=== PATIENT | male | born 1955 | race Caucasian/White ===

== ENCOUNTER 2024-06-22 10:52 | Observation (INO) | payer BC, MEDICARE ==
[2024-06-22 11:15] LABS: Absolute Neutrophil Ct (ANC) 4.11 x10^3/uL (1.78-5.38); BASOPHIL % 0.4 % (0.2-1.2); Basophil (Absolute #) 0.03 x10^3/uL (0.01-0.08); Eosinophil % 1.9 % (0.8-7.0); Eosinophil (Absolute #) 0.13 x10^3/uL (0.04-0.54); Hemoglobin 16.8 g/dL (13.7-17.5); IMMATURE GRAN # 0.02 x10^3u/L (0.001-0.031); IMMATURE GRAN % 0.3 % (0.001-0.429); Lymphocyte (Absolute #) 2.14 x10^3/uL (1.32-3.57); Lymphocytes % 31.1 % (21.8-53.1); Mean Cell Volume 87.1 fL (79.0-92.2); Mean Corpuscular Hemoglobin 29.3 pg (25.7-32.2); Mean Corpuscular Hgb Concent. 33.6 g/dL (32.3-36.5); Mean Platelet Volume 11.1 fL (9.4-12.4); Monocyte (Absolute #) 0.46 x10^3/uL (0.30-0.82); Monocytes % 6.7 % (5.3-12.2); Neutrophil % 59.6 % (34.0-67.9); Platelet Count 197 x10^3/uL (163-337); Red Blood Count 5.74 x10^6/uL (4.63-6.08); Red Cell Distribution Width 12.8 % (11.6-14.4); White Blood Count 6.9 x10^3/uL (4.23-9.07)
[2024-06-22 11:25] LABS: ALBUMIN 4.9 g/dL (3.5-5.0); ANION GAP 17.7 MEQ/L (5-15); BILIRUBIN,TOTAL 0.8 mg/dL (0.2-1.3); Calcium 9.8 mg/dL (8.4-10.2); Creatinine 1 1.33 mg/dL (0.66-1.25); EST GLOMERULAR FILTRATION RATE 57.2 ML/MIN; Potassium 4.9 mmol/L (3.5-5.1); Total Protein 7.9 g/dL (6.3-8.2)
[2024-06-22] MEDS ORDERED: Sodium Chloride 0.9% 1000 ML 1,000 ML ONE ×2 (11:55→12:59)
[2024-06-22] MEDS: Sodium Chloride 0.9% 1000 ML 1,000 ML IV STA (11:55)
--- NOTE | 2024-06-22 12:00 | XRAY ---
Indication: Short of breath. Comparison: None Portable chest demonstrates normal heart, lungs, and bony thorax.
--- NOTE | 2024-06-22 12:00 | XRAY ---
Indication: Confusion per left-sided numbness. Multiple contiguous axial images obtained through the head without contrast. Comparison: None Normal appearing brain parenchyma, ventricles, and bony calvarium for patient's age. 1.6 cm left maxillary sinus polyp/retention cyst. Remaining visualized paranasal sinuses and mastoid air cells are clear. Impression: Normal CT head without contrast exam. Incidental left maxillary sinus polyp/retention cyst.
[2024-06-22] MEDS: Sodium Chloride 0.9% 1000 ML 1,000 ML IV SCH (13:00)
[2024-06-22 13:15] LABS: Appearance Clear (Clear); Bacteria None Seen /HPF (None Seen); Bilirubin Negative (Negative); Blood Negative (Negative); Epithelial Cells None Seen /HPF (None Seen); Glucose, Urine Negative (Negative); Hyaline Casts NONE SEEN /LPF (0-2); Ketones Negative (Negative); Leukocyte Esterase Negative (Negative); Nitrite Negative (Negative); Protein,Urine Dip Negative (Negative); RBC 0-2 /HPF (0-5); Urobilinogen 0.2 mg/dL (0.2); WBC 0-2 /HPF (0-5)
--- NOTE | 2024-06-22 15:13 | XRAY ---
Indication: Confusion. Occlusion. Normal CT head without contrast exam. Conventional contrast enhanced CTA neck performed using 100 cc Isovue 370 contrast. 2-D sagittal and coronal reformatted images obtained. Additional 3-D reformatted images obtained using separate workstation. Comparison: None Visualized aortic arch minimally arteriosclerotic with anatomic variant bovine arch. Widely patent right brachiocephalic, left common carotid, and left subclavian arteries. Examination right carotid circulation demonstrates normal CTA appearance to common carotid artery. Minimal eccentric calcifications carotid bulb and lesser degree origins of internal carotid and external carotid arteries. No critical stenosis, obstruction, or AV malformation. Examination left preservation emesis normal CTA appearance to common carotid and carotid bulb. Very minimal calcifications origins of internal carotid and external carotid arteries. No critical stenosis, obstruction, or AV malformation. Vertebral arteries are bilaterally patent with the right larger in caliber. Visualized soft tissues demonstrates markedly enlarged and heterogeneous left thyroid gland. No pathologic cervical/supraclavicular lymphadenopathy. Supra and infraglottic airway widely patent. Osseous structures intact with mild C5-C6 degenerative disc osteophyte complex. Patient edentulous. Lung apices clear. Impression: 1. Minimal arteriosclerotic calcifications, right carotid circulation greater than left. Dominant right vertebral artery. Remaining CTA neck with contrast exam is normal. 2. Incidental large heterogeneous left thyroid. Outpatient thyroid sonogram may yield further information. 3. Incidental C5-C6 generative disc disease
--- NOTE | 2024-06-22 15:15 | XRAY ---
Indication: Confusion. Occlusion. Normal CT head without contrast exam. Conventional contrast enhanced CTA head performed using 100 cc Isovue 370 contrast. 2-D sagittal and coronal reformatted images obtained. Additional 3-D reformatted images obtained using separate workstation. Comparison: None Distal internal carotid arteries are bilaterally symmetric with minimal arteriosclerotic calcifications in both parasellar segments. No critical stenosis, obstruction, or AV malformation. Normal carotid terminus with normal branching A1 and M1 segments bilaterally. More distal anterior cerebral and middle cerebral arteries are normal in CTA appearance. Posterior circulation demonstrates normal CTA appearance to distal left/right vertebral, basilar, left/right posterior cerebral, and left/right superior cerebellar arteries. Venous sinuses/drainage unremarkable. Brain parenchyma negative for abnormal enhancing intra-or extra-axial mass. Impression: Minimal arteriosclerotic calcifications both parasellar internal carotid arteries without critical stenosis/obstruction. Remaining CTA head with contrast exam is normal.
--- NOTE | 2024-06-22 15:52 | ERPHSYRPT ---
- History of Present Illness Time Seen by Provider: 06/22/24 11:10 Source: patient Exam Limitations: no limitations Patient Subjective Stated Complaint: C/O left sided weakness this am. Patient states he woke up around 0830 this am and was unable to use his left arm and leg properly; indicates left side is numb and tingling. Patient states he was okay when he went to bed last night. After speaking with patient for a minute, he indicates he has had some numbness and tingling for a few weeks but the inability to use his left limbs started this am. Triage Nursing Assessment: Patient brought back to ER in a W/C. He is alert and oriented. Weakness is noted to LUE and LLE with slight left sided facial droop present. Left fingers/hand drawn inward but he can move hand and fingers when commanded to do so. Patient unable to touch finger to nurse hand and then back to nose; misses his own nose each time. No SOB. Timing/Duration: today Severity: mild Associated Symptoms: denies symptoms Allergies/Adverse Reactions: Penicillins Allergy (Verified 06/22/24 10:59) Home Medications: No Reportable Medications [No Reported Medications] 06/22/24 [History] Hx Tetanus, Diphtheria Vaccination/Date Given: Yes Hx Influenza Vaccination/Date Given: No Hx Pneumococcal Vaccination/Date Given: No Immunizations Up to Date: Yes Travel Risk - International Travel Have you traveled outside of the country in past 3 weeks: No - Emerging Infectious Disease Are you exhibiting symptoms associated with any current EIDs: No - Review of Systems Eyes: No Symptoms Ears, Nose, & Throat: No Symptoms Respiratory: No Symptoms Cardiac: No Symptoms Abdominal/Gastrointestinal: No Symptoms Genitourinary Symptoms: No Symptoms Musculoskeletal: No Symptoms Neurological: Focal Weakness Psychological: No Symptoms Endocrine: No Symptoms Hematologic/Lymphatic: No Symptoms - Past Medical History Pertinent Past Medical History: Yes Neurological History: No Pertinent History ENT History: No Pertinent History Cardiac History: No Pertinent History Respiratory History: No Pertinent History Endocrine Medical History: No Pertinent History Musculoskeletal History: No Pertinent History GI Medical History: No Pertinent History History: No Pertinent History Psycho-Social History: No Pertinent History Male Reproductive Disorders: No Pertinent History, Prostate Problems Other Medical History: Patient indicates he doesn't go to the doctor often at all and has never been on any prescription medications for anything - Past Surgical History Past Surgical History: No - Social History Smoking Status: Never smoker Drug Use: none - Social Determinants of Health Will the patient participate in the screening: Declined to provide - Nursing Vital Signs Nursing Vital Signs: Initial Vital Signs Temperature 97.4 F 06/22/24 10:59 Pulse Rate 67 06/22/24 10:59 Respiratory Rate 17 06/22/24 10:59 Blood Pressure 171/113 06/22/24 10:59 O2 Sat by Pulse Oximetry 98 06/22/24 10:59 Pain Scale Pain Intensity 0 - Physical Exam General Appearance: no apparent distress Eye Exam: PERRL/EOMI Ears, Nose, Throat Exam: normal ENT inspection Respiratory Exam: diminished breath sounds Cardiovascular Exam: regular rate/rhythm Gastrointestinal/Abdomen Exam: soft Neurologic Exam: alert, oriented x 3, cooperative, normal mood/affect ( he was also updated with the chest x-ray patient has some left upper extremity and left lower extremity weakness on exam ) SpO2: 98 Ordered Tests: Active Orders 24 hr Category Date Time Status NPO (ED) STAT Care 06/22/24 11:09 Active Oxygen-ED Only Nasal Cannula 2 lpm Care 06/22/24 11:09 Active Tele-Health Consult ROUTINE Cons 06/22/24 15:45 Active CHEST 1 VIEW (PORTABLE) Stat Exams 06/22/24 11:[address] ANGIOGRAPHY NECK [CT] Stat Exams 06/22/24 13:12 Completed CTA HEAD W AND/OR WO CONTRAST [CT] Stat Exams 06/22/24 13:11 Completed HEAD WITHOUT CONTRAST [CT] Stat Exams 06/22/24 10:55 Completed CBC W DIFF Stat Lab 06/22/24 11:08 Completed CMP Stat Lab 06/22/24 11:08 Completed POCT GLUCOSE Stat Lab 06/22/24 10:58 Completed UA W/RFX UR CULTURE Stat Lab 06/22/24 11:59 Completed Medication Summary Generic Name Dose Route Start Last Admin Trade Name Freq PRN Reason Stop Dose Admin Aspirin 325 mg 06/22/24 22:00 Aspirin 325 Mg Tablet.Ec PO 07/22/24 21:59 HS PORTIA Sodium Chloride 1,000 mls @ 50 mls/hr 06/22/24 11:15 06/22/24 13:00 Sodium Chloride 0.9% 1000 Ml IV 07/22/24 11:14 50 mls/hr .Q20H PORTIA Administration Discontinued Medications Generic Name Dose Route Start Last Admin Trade Name Freq PRN Reason Stop Dose Admin Atorvastatin Calcium 40 mg 06/22/24 15:51 Atorvastatin Calcium 40 Mg Tablet PO 06/22/24 15:52 STAT STA Sodium Chloride 1,000 mls @ 999 mls/hr 06/22/24 11:30 06/22/24 12:58 Sodium Chloride 0.9% 1000 Ml IV 06/22/24 12:30 Infused .Q1H1M STA Infusion Lab/Rad Data: Laboratory Result Diagrams 06/22/24 11:08 06/22/24 11:08 Laboratory Results 06/22/24 06/22/24 06/22/24 Range/Units 11:59 11:08 11:08 WBC 6.9 (4.23-9.07) x10^3/uL RBC 5.74 (4.63-6.08) x10^6/uL Hgb 16.8 (13.7-17.5) g/dL Hct 50.0 (40.1-51.0) % MCV 87.1 (79.0-92.2) fL MCH 29.3 (25.7-32.2) pg MCHC 33.6 (32.3-36.5) g/dL RDW 12.8 (11.6-14.4) % Plt Count 197 (163-337) x10^3/uL MPV 11.1 (9.4-12.4) fL Gran % 59.6 (34.0-67.9) % Immature Gran % (Auto) 0.3 (0.001-0.429) % Nucleat RBC Rel Count 0.0 (0.00-0.2) % Eos # (Auto) 0.13 (0.04-0.54) x10^3/uL Immature Gran # (Auto) 0.02 (0.001-0.031) x10^3u/L Absolute Lymphs (auto) 2.14 (1.32-3.57) x10^3/uL Absolute Monos (auto) 0.46 (0.30-0.82) x10^3/uL Absolute Nucleated RBC 0.00 (0.00-0.012) x10^3u/L Lymphocytes % 31.1 (21.8-53.1) % Monocytes % 6.7 (5.3-12.2) % Eosinophils % 1.9 (0.8-7.0) % Basophils % 0.4 (0.2-1.2) % Absolute Granulocytes 4.11 (1.78-5.38) x10^3/uL Basophils # 0.03 (0.01-0.08) x10^3/uL Sodium 138 (135-145) mmol/L Potassium 4.9 (3.5-5.1) mmol/L Chloride 103 (98-107) mmol/L Carbon Dioxide 22 (22-30) mmol/L Anion Gap 17.7 H (5-15) MEQ/L BUN 17 (9-20) mg/dL Creatinine 1.33 H (0.66-1.25) mg/dL Estimated GFR 57.2 ML/MIN Glucose 141 H (74-106) mg/dL POC Glucometer (74 to 106) mg/dL Calcium 9.8 (8.4-10.2) mg/dL Total Bilirubin 0.80 (0.2-1.3) mg/dL AST 41 (17-59) U/L ALT 47 (0-50) U/L Alkaline Phosphatase 48 (38-126) U/L Serum Total Protein 7.9 (6.3-8.2) g/dL Albumin 4.9 (3.5-5.0) g/dL Urine Color Yellow (Yellow) Urine Appearance Clear (Clear) Urine pH 6.0 (4.6-8.0) Ur Specific [place] 1.010 (1.005-1.030) Urine Protein Negative (Negative) Urine Glucose (UA) Negative (Negative) mg/dL Urine Ketones Negative (Negative) Urine Blood Negative (Negative) Urine Nitrite Negative (Negative) Urine Bilirubin Negative (Negative) Urine Urobilinogen 0.2 (0.2) mg/dL Ur Leukocyte Esterase Negative (Negative) U Hyaline Cast (Auto) NONE SEEN (0-2) /LPF Urine Microscopic RBC 0-2 (0-5) /HPF Urine Microscopic WBC 0-2 (0-5) /HPF Ur Epithelial Cells None Seen (None Seen) /HPF Urine Bacteria None Seen (None Seen) /HPF Urine Culture Reflexed NO (NO) 06/22/24 Range/Units 10:58 WBC (4.23-9.07) x10^3/uL RBC (4.63-6.08) x10^6/uL Hgb (13.7-17.5) g/dL Hct (40.1-51.0) % MCV (79.0-92.2) fL MCH (25.7-32.2) pg MCHC (32.3-36.5) g/dL RDW (11.6-14.4) % Plt Count (163-337) x10^3/uL MPV (9.4-12.4) fL Gran % (34.0-67.9) % Immature Gran % (Auto) (0.001-0.429) % Nucleat RBC Rel Count (0.00-0.2) % Eos # (Auto) (0.04-0.54) x10^3/uL Immature Gran # (Auto) (0.001-0.031) x10^3u/L Absolute Lymphs (auto) (1.32-3.57) x10^3/uL Absolute Monos (auto) (0.30-0.82) x10^3/uL Absolute Nucleated RBC (0.00-0.012) x10^3u/L Lymphocytes % (21.8-53.1) % Monocytes % (5.3-12.2) % Eosinophils % (0.8-7.0) % Basophils % (0.2-1.2) % Absolute Granulocytes (1.78-5.38) x10^3/uL Basophils # (0.01-0.08) x10^3/uL Sodium (135-145) mmol/L Potassium (3.5-5.1) mmol/L Chloride (98-107) mmol/L Carbon Dioxide (22-30) mmol/L Anion Gap (5-15) MEQ/L BUN (9-20) mg/dL Creatinine (0.66-1.25) mg/dL Estimated GFR ML/MIN Glucose (74-106) mg/dL POC Glucometer 131 H (74 to 106) mg/dL Calcium (8.4-10.2) mg/dL Total Bilirubin (0.2-1.3) mg/dL AST (17-59) U/L ALT (0-50) U/L Alkaline Phosphatase (38-126) U/L Serum Total Protein (6.3-8.2) g/dL Albumin (3.5-5.0) g/dL Urine Color (Yellow) Urine Appearance (Clear) Urine pH (4.6-8.0) Ur Specific [place] (1.005-1.030) Urine Protein (Negative) Urine Glucose (UA) (Negative) mg/dL Urine Ketones (Negative) Urine Blood (Negative) Urine Nitrite (Negative) Urine Bilirubin (Negative) Urine Urobilinogen (0.2) mg/dL Ur Leukocyte Esterase (Negative) U Hyaline Cast (Auto) (0-2) /LPF Urine Microscopic RBC (0-5) /HPF Urine Microscopic WBC (0-5) /HPF Ur Epithelial Cells (None Seen) /HPF Urine Bacteria (None Seen) /HPF Urine Culture Reflexed (NO) - Progress Progress Note: patient was seen and evaluated for stroke like symptoms labs were ordered and - ct head revealed no acute findings and patient was informed of the need for cta head and neck and the need for admission - I discussed the case with the hospitalist and the teleneurologist who agreed with the need for admission - patient took aspirin prior to coming in and lipitor 40 mg po will be ordered 06/22/24 16:06 Medical Desision Making - Discussion of managment Care discussed with:: hospitalist Reviewed:: Need for additional workup Agreed on:: decision to admit, place in obs - Departure Departure Disposition: Observation Clinical Impression: TIA (transient ischemic attack), Hypertension Condition: Good Critical Care Time: No Referrals: DOCTOR,NO FAMILY [Primary Care Provider] - Follow up/PCP as directed
[2024-06-22] MEDS ORDERED: LIPITOR 40MG ONE (16:17)
[2024-06-22] MEDS: LIPITOR 40MG PO STA (16:19)
--- NOTE | 2024-06-22 17:55 | PCM.HP ---
History of Present Illness - Chief Complaint Chief Complaint: left sided weakness Date: 06/22/24 History of Present Illness: is a 69 year old male with PMHX of prostate problems and obesity. He came in the ER today for C/O left sided weakness this am. Patient states he woke up around 0830 this am and was unable to use his left arm and leg properly; indicates left side is numb and tingling. Patient states he was okay when he went to bed last night. After speaking with patient for a minute, he indicates he has had some numbness and tingling for a few weeks but the inability to use his left limbs started this am. Neuro exam is non-concerning. Radiology images reviewed and show no acute concerns. Neurology consulted and would like MRI tomorrow. Pt denies any further concerns except some left arm/ hand weakness at this time. - Review of Systems Constitutional: No Fever, No Chills Eyes: No Symptoms Ears, Nose, & Throat: No Symptoms Respiratory: No Cough, No Short Of Breath Cardiac: No Chest Pain, No Edema, No Syncope Abdominal/Gastrointestinal: No Abdominal Pain, No Nausea, No Vomiting, No Diarrhea Genitourinary Symptoms: No Dysuria Musculoskeletal: No Back Pain, No Neck Pain Skin: No Rash Neurological: Sensory Changes (left sided weakness), No Dizziness, No Focal Weakness Psychological: No Symptoms Endocrine: No Symptoms Hematologic/Lymphatic: No Symptoms Immunological/Allergic: No Symptoms Medications & Allergies Home Medications: Home Medication List No Reportable Medications [No Reported Medications] 06/22/24 [History Confirmed 06/22/24] Allergies/Adverse Reactions: Allergies Allergy/AdvReac Type Severity Reaction Status Date / Time Penicillins Allergy Verified 06/22/24 17:54 - Past Medical History Past Medical History: Yes Neurological History: No Pertinent History ENT History: No Pertinent History Cardiac History: No Pertinent History Respiratory History: No Pertinent History Endocrine Medical History: No Pertinent History Musculoskelatal History: No Pertinent History GI Medical History: No Pertinent History History: No Pertinent History Pyscho-Social History: No Pertinent History Male Reproductive Disorders: No Pertinent History, Prostate Problems Comment: Patient indicates he doesn't go to the doctor often at all and has never been on any prescription medications for anything - Past Surgical History Past Surgical History: No Cardiac History: No Pertinent History Respiratory Surgery: No Pertinent History GI Surgical History: No Pertinent History Genitourinary Surgical Hx: No Pertinent History Musculskeletal Surgical Hx: No Pertinent History Male Surgical History: No Pertinent History Significant Family History: no pertinent family hx - Social History Smoking Status: Never smoker Alcohol: None Drug Use: none - Social Determinants of Health Will the patient participate in the screening: Declined to provide Do you worry about a steady place to live?: Choose not to answer Do you have any problems with any of the following?: No known problems In the past 12 months,have you had to go without utilities?: Choose not to answer Have you or anyone in your house had to go without enough: Choose not to answer Transportation Issues: Choose not to answer Has anyone in your support network made you feel unsafe?: Choose not to answer Does the patient want assistance with any of the above?: No - Physical Exam Vital Signs: Vital Signs - 24 hr Temp Pulse Resp BP BP Pulse Ox 06/22/24 17:01 56 L 14 144/76 97 06/22/24 16:31 62 17 150/87 06/22/24 16:16 63 13 136/70 96 06/22/24 16:12 98 06/22/24 16:01 57 L 18 152/72 97 06/22/24 15:47 61 14 164/92 98 06/22/24 15:31 74 16 164/92 98 06/22/24 15:18 90 18 97 06/22/24 15:01 79 19 161/75 100 06/22/24 14:46 71 20 127/46 94 L 06/22/24 14:34 56 L 18 132/70 96 06/22/24 13:31 61 18 147/74 95 06/22/24 13:16 62 20 155/72 99 06/22/24 13:00 68 151/70 98 06/22/24 12:46 55 L 135/69 99 06/22/24 12:30 57 L 142/85 99 06/22/24 12:15 53 L 149/80 98 06/22/24 12:00 61 14 138/72 99 06/22/24 11:57 67 13 162/84 99 06/22/24 11:56 69 20 97 06/22/24 11:55 75 21 06/22/24 11:40 59 L 15 96 06/22/24 11:30 62 6 L 97 06/22/24 11:28 58 L 17 98 06/22/24 11:01 70 18 182/87 99 06/22/24 10:59 97.4 F 67 17 171/113 98 General Appearance: no apparent distress, alert Neurologic Exam: alert, oriented x 3, cooperative, counter molder II-XII nml as tested, normal mood/affect, nml cerebellar function, nml station & gait, sensation nml, No motor deficits Eye Exam: PERRL/EOMI, eyes nml inspection Ears, Nose, Throat Exam: normal ENT inspection, TMs normal, pharynx normal, moist mucous membranes Neck Exam: normal inspection, non-tender, supple, full range of motion Respiratory Exam: normal breath sounds, lungs clear, No respiratory distress Cardiovascular Exam: regular rate/rhythm, normal heart sounds, normal peripheral pulses Gastrointestinal/Abdomen Exam: soft, normal bowel sounds, No tenderness, No mass Back Exam: normal inspection, normal range of motion, No CVA tenderness, No vertebral tenderness Extremity Exam: normal inspection, normal range of motion, pelvis stable Skin Exam: normal color, warm, dry, No rash Lymphatic Exam: No adenopathy Results - Labs Lab/Micro Results: Lab Results-Last 24 Hours 06/22/24 06/22/24 06/22/24 Range/Units 10:58 11:08 11:08 WBC 6.9 (4.23-9.07) x10^3/uL RBC 5.74 (4.63-6.08) x10^6/uL Hgb 16.8 (13.7-17.5) g/dL Hct 50.0 (40.1-51.0) % MCV 87.1 (79.0-92.2) fL MCH 29.3 (25.7-32.2) pg MCHC 33.6 (32.3-36.5) g/dL RDW 12.8 (11.6-14.4) % Plt Count 197 (163-337) x10^3/uL MPV 11.1 (9.4-12.4) fL Gran % 59.6 (34.0-67.9) % Immature Gran % (Auto) 0.3 (0.001-0.429) % Nucleat RBC Rel Count 0.0 (0.00-0.2) % Eos # (Auto) 0.13 (0.04-0.54) x10^3/uL Immature Gran # (Auto) 0.02 (0.001-0.031) x10^3u/L Absolute Lymphs (auto) 2.14 (1.32-3.57) x10^3/uL Absolute Monos (auto) 0.46 (0.30-0.82) x10^3/uL Absolute Nucleated RBC 0.00 (0.00-0.012) x10^3u/L Lymphocytes % 31.1 (21.8-53.1) % Monocytes % 6.7 (5.3-12.2) % Eosinophils % 1.9 (0.8-7.0) % Basophils % 0.4 (0.2-1.2) % Absolute Granulocytes 4.11 (1.78-5.38) x10^3/uL Basophils # 0.03 (0.01-0.08) x10^3/uL Sodium 138 (135-145) mmol/L Potassium 4.9 (3.5-5.1) mmol/L Chloride 103 (98-107) mmol/L Carbon Dioxide 22 (22-30) mmol/L Anion Gap 17.7 H (5-15) MEQ/L BUN 17 (9-20) mg/dL Creatinine 1.33 H (0.66-1.25) mg/dL Estimated GFR 57.2 ML/MIN Glucose 141 H (74-106) mg/dL POC Glucometer 131 H (74 to 106) mg/dL Calcium 9.8 (8.4-10.2) mg/dL Total Bilirubin 0.80 (0.2-1.3) mg/dL AST 41 (17-59) U/L ALT 47 (0-50) U/L Alkaline Phosphatase 48 (38-126) U/L Serum Total Protein 7.9 (6.3-8.2) g/dL Albumin 4.9 (3.5-5.0) g/dL Urine Color (Yellow) Urine Appearance (Clear) Urine pH (4.6-8.0) Ur Specific [place] (1.005-1.030) Urine Protein (Negative) Urine Glucose (UA) (Negative) mg/dL Urine Ketones (Negative) Urine Blood (Negative) Urine Nitrite (Negative) Urine Bilirubin (Negative) Urine Urobilinogen (0.2) mg/dL Ur Leukocyte Esterase (Negative) U Hyaline Cast (Auto) (0-2) /LPF Urine Microscopic RBC (0-5) /HPF Urine Microscopic WBC (0-5) /HPF Ur Epithelial Cells (None Seen) /HPF Urine Bacteria (None Seen) /HPF Urine Culture Reflexed (NO) 06/22/24 Range/Units 11:59 WBC (4.23-9.07) x10^3/uL RBC (4.63-6.08) x10^6/uL Hgb (13.7-17.5) g/dL Hct (40.1-51.0) % MCV (79.0-92.2) fL MCH (25.7-32.2) pg MCHC (32.3-36.5) g/dL RDW (11.6-14.4) % Plt Count (163-337) x10^3/uL MPV (9.4-12.4) fL Gran % (34.0-67.9) % Immature Gran % (Auto) (0.001-0.429) % Nucleat RBC Rel Count (0.00-0.2) % Eos # (Auto) (0.04-0.54) x10^3/uL Immature Gran # (Auto) (0.001-0.031) x10^3u/L Absolute Lymphs (auto) (1.32-3.57) x10^3/uL Absolute Monos (auto) (0.30-0.82) x10^3/uL Absolute Nucleated RBC (0.00-0.012) x10^3u/L Lymphocytes % (21.8-53.1) % Monocytes % (5.3-12.2) % Eosinophils % (0.8-7.0) % Basophils % (0.2-1.2) % Absolute Granulocytes (1.78-5.38) x10^3/uL Basophils # (0.01-0.08) x10^3/uL Sodium (135-145) mmol/L Potassium (3.5-5.1) mmol/L Chloride (98-107) mmol/L Carbon Dioxide (22-30) mmol/L Anion Gap (5-15) MEQ/L BUN (9-20) mg/dL Creatinine (0.66-1.25) mg/dL Estimated GFR ML/MIN Glucose (74-106) mg/dL POC Glucometer (74 to 106) mg/dL Calcium (8.4-10.2) mg/dL Total Bilirubin (0.2-1.3) mg/dL AST (17-59) U/L ALT (0-50) U/L Alkaline Phosphatase (38-126) U/L Serum Total Protein (6.3-8.2) g/dL Albumin (3.5-5.0) g/dL Urine Color Yellow (Yellow) Urine Appearance Clear (Clear) Urine pH 6.0 (4.6-8.0) Ur Specific [place] 1.010 (1.005-1.030) Urine Protein Negative (Negative) Urine Glucose (UA) Negative (Negative) mg/dL Urine Ketones Negative (Negative) Urine Blood Negative (Negative) Urine Nitrite Negative (Negative) Urine Bilirubin Negative (Negative) Urine Urobilinogen 0.2 (0.2) mg/dL Ur Leukocyte Esterase Negative (Negative) U Hyaline Cast (Auto) NONE SEEN (0-2) /LPF Urine Microscopic RBC 0-2 (0-5) /HPF Urine Microscopic WBC 0-2 (0-5) /HPF Ur Epithelial Cells None Seen (None Seen) /HPF Urine Bacteria None Seen (None Seen) /HPF Urine Culture Reflexed NO (NO) Accuchecks Date 06/22/24 Time 10:58 - Radiology Impressions Radiology Exams & Impressions: Radiology Procedures Category Date Time Status CHEST 1 VIEW (PORTABLE) Stat Exams 06/22/24 11:[address] ANGIOGRAPHY NECK [CT] Stat Exams 06/22/24 13:12 Completed CTA HEAD W AND/OR WO CONTRAST [CT] Stat Exams 06/22/24 13:11 Completed HEAD WITHOUT CONTRAST [CT] Stat Exams 06/22/24 10:55 Completed Assessment/Plan (1) TIA (transient ischemic attack) Current Visit: Yes Status: Acute Assessment & Plan: - All radiology results reviewed. - CBC, CMP reviewed - UA reviewed - UDS ordered - Tele - neuro checks Q4 hours - PT/OT - no need for ST at this time. - neurology consult - MRI in AM - ASA 81mg daily - ASA 325mg gave in ER Code(s): G45.9 - TRANSIENT CEREBRAL ISCHEMIC ATTACK, UNSPECIFIED (2) Obesity (BMI 30-39.9) Current Visit: Yes Status: Chronic Assessment & Plan: - advised diet and exercise control Code(s): E66.9 - OBESITY, UNSPECIFIED (3) Thyroid enlargement Current Visit: Yes Status: Acute Assessment & Plan: - as seen on CT - TSH in AM - Consider US - abdon need OP f/u at D/C. Code(s): E04.9 - NONTOXIC GOITER, UNSPECIFIED (4) CKD (chronic kidney disease) Current Visit: Yes Status: Chronic Assessment & Plan: - Creat 1.33- appears to be at baseline per old labs reviewed. - CMP reviewed Code(s): N18.9 - CHRONIC KIDNEY DISEASE, UNSPECIFIED (5) Dehydration Current Visit: Yes Status: Acute Assessment & Plan: - Anion Gap 17.7 - Encouraged oral hydration. - NS @ 50 ml/hr VTE: SCD Next of KIN: Spouse D/C plan: tomorrow ? Code status: Full Code(s): E86.0 - DEHYDRATION Telemedicine Encounter - Telemedicine Encounter Telemedicine Encounter: "The entirety of this encounter was performed via Telemedicine" This visit was performed using real-time audio and video connection between my location and thepatients locationwith the assistance of a surrogateat the patients location. Written or verbal consent was obtained from the patient/ guardian to perform this visit [email or web address] technology. Any patient questions regarding the telemedicine interaction were answered.
[2024-06-22] MEDS ORDERED: TYLENOL 325 MG PO PRN (17:57)
[2024-06-22] MEDS ORDERED: Ecotrin 325 MG PO SCH (22:00)
[2024-06-23 05:09] LABS: Hematocrit 45.4 % (40.1-51.0); Hemoglobin 15.2 g/dL (13.7-17.5); Mean Corpuscular Hemoglobin 28.8 pg (25.7-32.2); Mean Corpuscular Hgb Concent. 33.5 g/dL (32.3-36.5); Mean Platelet Volume 11.1 fL (9.4-12.4); Platelet Count 194 x10^3/uL (163-337); Red Blood Count 5.28 x10^6/uL (4.63-6.08); Red Cell Distribution Width 13.1 % (11.6-14.4)
[2024-06-23 05:52] LABS: ALBUMIN 4.2 g/dL (3.5-5.0); ANION GAP 14.6 MEQ/L (5-15); BILIRUBIN,TOTAL 0.4 mg/dL (0.2-1.3); Calcium 9.1 mg/dL (8.4-10.2); Creatinine 1 1.15 mg/dL (0.66-1.25); Potassium 4.1 mmol/L (3.5-5.1); TSH, 3RD Generation 2.837 mIU/L (0.470-4.680); Total Protein 6.9 g/dL (6.3-8.2)
[2024-06-23] MEDS ORDERED: TYLENOL 325 MG PO PRN (07:57)
[2024-06-23 08:51] VITALS: O2SAT 97
[2024-06-23 08:58] LABS: Amphetamine,Urine NEGATIVE (NEGATIVE); Barbiturate,Urine NEGATIVE (NEGATIVE); Benzodiazepine,Urine NEGATIVE (NEGATIVE); Cocaine,Urine NEGATIVE (NEGATIVE); Methadone,Urine NEGATIVE (NEGATIVE); Opiate,Urine NEGATIVE (NEGATIVE); PCP,Urine NEGATIVE (NEGATIVE); THC,Urine NEGATIVE (NEGATIVE)
--- NOTE | 2024-06-23 10:20 | PCM.DS ---
Discharge Summary Date of Admission: 06/22/24 17:48 Date of Discharge: 06/23/24 Admitting Physician: KANCHAN RUBIO MD Consults: Consults on Case 06/22/24 15:45 Tele-Health Consult ROUTINE Primary Care Provider: NO FAMILY DOCTOR Allergies Allergies Penicillins Allergy (Verified 06/22/24 17:54) Hospital Summary - Hospital Course Hospital Course: 06/22/24 is a 69 year old male with PMHX of prostate problems and obesity. He came in the ER today for C/O left sided weakness this am. Patient states he woke up around 0830 this am and was unable to use his left arm and leg properly; in dicates left side is numb and tingling. Patient states he was okay when he went to bed last night. After speaking with patient for a minute, he indicates he has had some numbness and tingling for a few weeks but the inability to use his left limbs started this am. Neuro exam is non-concerning. Radiology images reviewed and show no acute concerns. Neurology consulted and would like MRI tomorrow. Pt denies any further concerns except some left arm/ hand weakness at this time. 06/23/24 Pt resting in bed. He states he no longer has any left sided weakness and he only has some tingling in his left forearm today. Neuro exam non-concerning. MRI pending. If OK can d/c home today. Will need a f/u appointment with a PCP as he does not have one. He denies CP, SOB, abd. pain, N/V/D. He has been up walking without any concerns. He is eating and drinking fine. MRI finding discussed with neurology. Pt to d/c with atorvastatin 80mg daily and ASA daily. Will need OP PT and case management to set up for pt tomorrow. Pt will need to f/u with neurology and appointment to made for pt tomorrow. - Vitals & Intake/Output Vital Signs: Vital Signs Temperature 97.4 F 06/23/24 08:51 Pulse Rate 63 06/23/24 08:51 Respiratory Rate 18 06/23/24 08:51 Blood Pressure 132/75 06/23/24 08:51 O2 Sat by Pulse Oximetry 97 06/23/24 08:51 Intake & Output: Intake & Output 06/20/24 06/21/24 06/22/2406/23/24 11:59 11:59 11:59 11:59 Intake Total 240 Balance 240 Weight 117.934 kg 106.5 kg - Lab Result Diagrams: 06/23/24 05:00 06/23/24 05:00 Lab Results-Last 24 Hrs: Lab Results-Last 24 Hours 06/22/24 06/22/24 06/22/24 Range/Units 10:58 11:08 11:08 WBC 6.9 (4.23-9.07) x10^3/uL RBC 5.74 (4.63-6.08) x10^6/uL Hgb 16.8 (13.7-17.5) g/dL Hct 50.0 (40.1-51.0) % MCV 87.1 (79.0-92.2) fL MCH 29.3 (25.7-32.2) pg MCHC 33.6 (32.3-36.5) g/dL RDW 12.8 (11.6-14.4) % Plt Count 197 (163-337) x10^3/uL MPV 11.1 (9.4-12.4) fL Gran % 59.6 (34.0-67.9) % Immature Gran % (Auto) 0.3 (0.001-0.429) % Nucleat RBC Rel Count 0.0 (0.00-0.2) % Eos # (Auto) 0.13 (0.04-0.54) x10^3/uL Immature Gran # (Auto) 0.02 (0.001-0.031) x10^3u/L Absolute Lymphs (auto) 2.14 (1.32-3.57) x10^3/uL Absolute Monos (auto) 0.46 (0.30-0.82) x10^3/uL Absolute Nucleated RBC 0.00 (0.00-0.012) x10^3u/L Lymphocytes % 31.1 (21.8-53.1) % Monocytes % 6.7 (5.3-12.2) % Eosinophils % 1.9 (0.8-7.0) % Basophils % 0.4 (0.2-1.2) % Absolute Granulocytes 4.11 (1.78-5.38) x10^3/uL Basophils # 0.03 (0.01-0.08) x10^3/uL Sodium 138 (135-145) mmol/L Potassium 4.9 (3.5-5.1) mmol/L Chloride 103 (98-107) mmol/L Carbon Dioxide 22 (22-30) mmol/L Anion Gap 17.7 H (5-15) MEQ/L BUN 17 (9-20) mg/dL Creatinine 1.33 H (0.66-1.25) mg/dL Estimated GFR 57.2 ML/MIN Glucose 141 H (74-106) mg/dL POC Glucometer 131 H (74 to 106) mg/dL Hemoglobin A1c (4.5-6.0) % Calcium 9.8 (8.4-10.2) mg/dL Total Bilirubin 0.80 (0.2-1.3) mg/dL AST 41 (17-59) U/L ALT 47 (0-50) U/L Alkaline Phosphatase 48 (38-126) U/L Serum Total Protein 7.9 (6.3-8.2) g/dL Albumin 4.9 (3.5-5.0) g/dL TSH 3rd Generation (0.470-4.680) mIU/L Urine Color (Yellow) Urine Appearance (Clear) Urine pH (4.6-8.0) Ur Specific Vega (1.005-1.030) Urine Protein (Negative) Urine Glucose (UA) (Negative) mg/dL Urine Ketones (Negative) Urine Blood (Negative) Urine Nitrite (Negative) Urine Bilirubin (Negative) Urine Urobilinogen (0.2) mg/dL Ur Leukocyte Esterase (Negative) U Hyaline Cast (Auto) (0-2) /LPF Urine Microscopic RBC (0-5) /HPF Urine Microscopic WBC (0-5) /HPF Ur Epithelial Cells (None Seen) /HPF Urine Bacteria (None Seen) /HPF Urine Culture Reflexed (NO) Urine Opiates Level (NEGATIVE) Ur Methadone (NEGATIVE) Urine Barbiturates (NEGATIVE) Ur Phencyclidine (PCP) (NEGATIVE) Urine Amphetamine (NEGATIVE) U Benzodiazepine Level (NEGATIVE) Urine Cocaine (NEGATIVE) Urine Marijuana (THC) (NEGATIVE) 06/22/24 06/23/24 06/23/24 Range/Units 11:59 05:00 05:00 WBC 7.0 (4.23-9.07) x10^3/uL RBC 5.28 (4.63-6.08) x10^6/uL Hgb 15.2 (13.7-17.5) g/dL Hct 45.4 (40.1-51.0) % MCV 86.0 (79.0-92.2) fL MCH 28.8 (25.7-32.2) pg MCHC 33.5 (32.3-36.5) g/dL RDW 13.1 (11.6-14.4) % Plt Count 194 (163-337) x10^3/uL MPV 11.1 (9.4-12.4) fL Gran % (34.0-67.9) % Immature Gran % (Auto) (0.001-0.429) % Nucleat RBC Rel Count (0.00-0.2) % Eos # (Auto) (0.04-0.54) x10^3/uL Immature Gran # (Auto) (0.001-0.031) x10^3u/L Absolute Lymphs (auto) (1.32-3.57) x10^3/uL Absolute Monos (auto) (0.30-0.82) x10^3/uL Absolute Nucleated RBC (0.00-0.012) x10^3u/L Lymphocytes % (21.8-53.1) % Monocytes % (5.3-12.2) % Eosinophils % (0.8-7.0) % Basophils % (0.2-1.2) % Absolute Granulocytes (1.78-5.38) x10^3/uL Basophils # (0.01-0.08) x10^3/uL Sodium 139 (135-145) mmol/L Potassium 4.1 (3.5-5.1) mmol/L Chloride 106 (98-107) mmol/L Carbon Dioxide 23 (22-30) mmol/L Anion Gap 14.6 (5-15) MEQ/L BUN 16 (9-20) mg/dL Creatinine 1.15 (0.66-1.25) mg/dL Estimated GFR 68.0 ML/MIN Glucose 137 H (74-106) mg/dL POC Glucometer (74 to 106) mg/dL Hemoglobin A1c (4.5-6.0) % Calcium 9.1 (8.4-10.2) mg/dL Total Bilirubin 0.40 (0.2-1.3) mg/dL AST 31 (17-59) U/L ALT 41 (0-50) U/L Alkaline Phosphatase 52 (38-126) U/L Serum Total Protein 6.9 (6.3-8.2) g/dL Albumin 4.2 (3.5-5.0) g/dL TSH 3rd Generation 2.837 (0.470-4.680) mIU/L Urine Color Yellow (Yellow) Urine Appearance Clear (Clear) Urine pH 6.0 (4.6-8.0) Ur Specific Vega 1.010 (1.005-1.030) Urine Protein Negative (Negative) Urine Glucose (UA) Negative (Negative) mg/dL Urine Ketones Negative (Negative) Urine Blood Negative (Negative) Urine Nitrite Negative (Negative) Urine Bilirubin Negative (Negative) Urine Urobilinogen 0.2 (0.2) mg/dL Ur Leukocyte Esterase Negative (Negative) U Hyaline Cast (Auto) NONE SEEN (0-2) /LPF Urine Microscopic RBC 0-2 (0-5) /HPF Urine Microscopic WBC 0-2 (0-5) /HPF Ur Epithelial Cells None Seen (None Seen) /HPF Urine Bacteria None Seen (None Seen) /HPF Urine Culture Reflexed NO (NO) Urine Opiates Level (NEGATIVE) Ur Methadone (NEGATIVE) Urine Barbiturates (NEGATIVE) Ur Phencyclidine (PCP) (NEGATIVE) Urine Amphetamine (NEGATIVE) U Benzodiazepine Level (NEGATIVE) Urine Cocaine (NEGATIVE) Urine Marijuana (THC) (NEGATIVE) 06/23/24 06/23/24 Range/Units 05:20 08:39 WBC (4.23-9.07) x10^3/uL RBC (4.63-6.08) x10^6/uL Hgb (13.7-17.5) g/dL Hct (40.1-51.0) % MCV (79.0-92.2) fL MCH (25.7-32.2) pg MCHC (32.3-36.5) g/dL RDW (11.6-14.4) % Plt Count (163-337) x10^3/uL MPV (9.4-12.4) fL Gran % (34.0-67.9) % Immature Gran % (Auto) (0.001-0.429) % Nucleat RBC Rel Count (0.00-0.2) % Eos # (Auto) (0.04-0.54) x10^3/uL Immature Gran # (Auto) (0.001-0.031) x10^3u/L Absolute Lymphs (auto) (1.32-3.57) x10^3/uL Absolute Monos (auto) (0.30-0.82) x10^3/uL Absolute Nucleated RBC (0.00-0.012) x10^3u/L Lymphocytes % (21.8-53.1) % Monocytes % (5.3-12.2) % Eosinophils % (0.8-7.0) % Basophils % (0.2-1.2) % Absolute Granulocytes (1.78-5.38) x10^3/uL Basophils # (0.01-0.08) x10^3/uL Sodium (135-145) mmol/L Potassium (3.5-5.1) mmol/L Chloride (98-107) mmol/L Carbon Dioxide (22-30) mmol/L Anion Gap (5-15) MEQ/L BUN (9-20) mg/dL Creatinine (0.66-1.25) mg/dL Estimated GFR ML/MIN Glucose (74-106) mg/dL POC Glucometer (74 to 106) mg/dL Hemoglobin A1c 6.51 H (4.5-6.0) % Calcium (8.4-10.2) mg/dL Total Bilirubin (0.2-1.3) mg/dL AST (17-59) U/L ALT (0-50) U/L Alkaline Phosphatase (38-126) U/L Serum Total Protein (6.3-8.2) g/dL Albumin (3.5-5.0) g/dL TSH 3rd Generation (0.470-4.680) mIU/L Urine Color (Yellow) Urine Appearance (Clear) Urine pH (4.6-8.0) Ur Specific Vega (1.005-1.030) Urine Protein (Negative) Urine Glucose (UA) (Negative) mg/dL Urine Ketones (Negative) Urine Blood (Negative) Urine Nitrite (Negative) Urine Bilirubin (Negative) Urine Urobilinogen (0.2) mg/dL Ur Leukocyte Esterase (Negative) U Hyaline Cast (Auto) (0-2) /LPF Urine Microscopic RBC (0-5) /HPF Urine Microscopic WBC (0-5) /HPF Ur Epithelial Cells (None Seen) /HPF Urine Bacteria (None Seen) /HPF Urine Culture Reflexed (NO) Urine Opiates Level NEGATIVE (NEGATIVE) Ur Methadone NEGATIVE (NEGATIVE) Urine Barbiturates NEGATIVE (NEGATIVE) Ur Phencyclidine (PCP) NEGATIVE (NEGATIVE) Urine Amphetamine NEGATIVE (NEGATIVE) U Benzodiazepine Level NEGATIVE (NEGATIVE) Urine Cocaine NEGATIVE (NEGATIVE) Urine Marijuana (THC) NEGATIVE (NEGATIVE) Micro Results-Entire Visit: Accuchecks Date 06/22/24 Time 10:58 - Radiology Exams Ordered Rad Exams-Entire Visit: Radiology Procedures Category Date Time Status CHEST 1 VIEW (PORTABLE) Stat Exams 06/22/24 11:[address] ANGIOGRAPHY NECK [CT] Stat Exams 06/22/24 13:12 Completed CTA HEAD W AND/OR WO CONTRAST [CT] Stat Exams 06/22/24 13:11 Completed HEAD WITHOUT CONTRAST [CT] Stat Exams 06/22/24 10:55 Completed MRI BRAIN W/O CONTRAST [MRI] Routine Exams 06/23/24 09:45 Ordered - Procedures and Test Procedures and Tests throughout Hospitalization: Therapy Orders & Screens 06/22/24 17:57 PT Eval & Treat ( Order) ONCE Reason for Eval:: TIA Diagnosis: TIA OT Eval and Treat ( Order) ONCE Comment: Physician Instructions: Reason For Exam: TIA Evaluate: Yes Treat: Yes Diagnosis: TIA Discharge Exam General Appearance: no apparent distress, alert, obese Neurologic Exam: alert, oriented x 3, cooperative, normal mood/affect, nml cerebellar function, sensation nml, No motor deficits Eye Exam: PERRL, EOMI, eyes nml inspection Ears, Nose, Throat Exam: normal ENT inspection, pharynx normal, moist mucous membranes Neck Exam: normal inspection, non-tender, supple, full range of motion Respiratory Exam: normal breath sounds, lungs clear, No respiratory distress Cardiovascular Exam: regular rate/rhythm, normal heart sounds Gastrointestinal/Abdomen Exam: soft, No tenderness, No mass Male Genitalia Exam: deferred Rectal Exam: deferred Back Exam: normal inspection, normal range of motion, No CVA tenderness, No vertebral tenderness Extremity Exam: normal inspection, normal range of motion Skin Exam: normal color, warm, dry Final Diagnosis/Problem List - Final Discharge Diagnosis/Problem (1) TIA (transient ischemic attack) Current Visit: Yes Status: Acute Code(s): G45.9 - TRANSIENT CEREBRAL IS CHEMIC ATTACK, UNSPECIFIED (2) Obesity (BMI 30-39.9) Current Visit: Yes Status: Chronic Code(s): E66.9 - OBESITY, UNSPECIFIED (3) Thyroid enlargement Current Visit: Yes Status: Acute Code(s): E04.9 - NONTOXIC GOITER, UNSPECIFIED (4) CKD (chronic kidney disease) Current Visit: Yes Status: Chronic Code(s): N18.9 - CHRONIC KIDNEY DISEASE, UNSPECIFIED (5) Dehydration Current Visit: Yes Status: Resolved Assessment & Plan: (1) TIA (transient ischemic attack) Current Visit: Yes Status: Acute Assessment & Plan: - All radiology results reviewed. - CBC, CMP reviewed - UA reviewed - UDS ordered - Tele - neuro checks Q4 hours - PT/OT - no need for ST at this time. - neurology consult - MRI in AM - ASA 81mg daily - ASA 325mg gave in ER 06/23 - MRI reviewed and discussed with neurology - neurology recommends OP f/u with PT, neuro, ASA daily and Atorvastatin 80mg daily - CBC, CMP reviewed - Echo, lipid panel, lipitor 40 Q HS - UDS negative Code(s): G45.9 - TRANSIENT CEREBRAL ISCHEMIC ATTACK, UNSPECIFIED (2) Obesity (BMI 30-39.9) Current Visit: Yes Status: Chronic Assessment & Plan: - advised diet and exercise control Code(s): E66.9 - OBESITY, UNSPECIFIED (3) Thyroid enlargement Current Visit: Yes Status: Acute Assessment & Plan: - as seen on CT - TSH in AM - Consider US - abdon need OP f/u at D/C. 06/23 - TSH WNL Code(s): E04.9 - NONTOXIC GOITER, UNSPECIFIED (4) CKD (chronic kidney disease) Current Visit: Yes Status: Chronic Assessment & Plan: - Creat 1.33- appears to be at baseline per old labs reviewed. - CMP reviewed Code(s): N18.9 - CHRONIC KIDNEY DISEASE, UNSPECIFIED (5) Dehydration Current Visit: Yes Status: Acute Assessment & Plan: - Anion Gap 17.7 - Encouraged oral hydration. - NS @ 50 ml/hr 06/23 - IVF stopped - resolved Code(s): E86.0 - DEHYDRATION (6) Elevated fasting glucose Current Visit: Yes Status: Acute Assessment & Plan: - A1C 6.51 - Glucose 137 this AM Code(s): R73.01 - IMPAIRED FASTING GLUCOSE - Discharge Discharge Date: 06/23/24 Disposition: Home, Self-Care Condition: Good Prescriptions: New Aspirin EC 81 mg [Ecotrin 81 mg] 81 mg PO DAILY 30 Days #30 tablet Outpatient Orders: Physical Therapy Eval & Treat Facility: [facility], Location: PHYSICAL THERAPY Additional Instructions: YOUR FIRST APT WITH PHYSICAL THERAPY IS Follow up with: IKE FLOWERS MD [ACTIVE STAFF] - (THEY WILL CALL YOU TO GET YOU SET UP WITH DR. FLOWERS A PRIMARY CARE DOCTOR) YANY ROSS NP [NON-STAFF PHY W/O PRIVILEGES] - 07/01/24 10:45 am
[2024-06-23] MEDS: ECOTRIN 81 MG PO SCH (10:55)
--- NOTE | 2024-06-23 16:47 | XRAY ---
Indication: TIA. Sagittal, coronal, and axial MRI brain performed without contrast using T1, T2, FLAIR, diffusion, and ADC sequences. Comparison: None Age-appropriate global atrophy and mild periventricular degenerative micro-ischemia signal bilaterally. Diffusion images demonstrates centimeter and subcentimeter multifocal restricted signal right occipital lobe and lesser degree deep right temporal lobe favoring acute ischemia. Additional subcentimeter restricted signal right thalamus. T1 sequences demonstrates tiny serpiginous high signal in right occipital lobe cortex suggesting petechial hemorrhage probably from luxury reperfusion. No abnormal extra-axial fluid collection or mass effect. Fourth ventricle is midline without hydrocephalus. 7/8 cranial nerve complex bilaterally symmetric. Normal flow void signal within the major intracerebral circulation. Normal appearing craniocervical junction and sella turcica. 2.5 cm polyp/retention cyst floor left maxillary sinus. Impression: 1. Small multifocal acute ischemia right occipital lobe, deep right temporal lobe, and right thalamus. Tiny petechial cortical hemorrhage right occipital lobe presumed from luxury reperfusion. 2. Atrophy and degenerative micro-ischemia within normal limits. 3. Incidental left maxillary sinus polyp/retention cyst. Comment: Telephone report was given to ordering clinician, Tiffany Wynn at 1640 hrs. on June 23, 2024.
[2024-06-23 17:40] VITALS: BP 182/91; PULSE 75; RESP 16; TEMP 97.4
[2024-06-23] MEDS ORDERED: ZOCOR 20MG PO SCH (22:00)
== END 2024-06-23 19:43 | disposition home or self-care (01) ==
LOC: ED 10:52 → MED SURG 17:48
PROVIDERS: ADMIT Internal Medicine; ATTEND Internal Medicine
DX: G45.9 Transient cerebral ischemic attack, unspecified (principal); I63.9 Cerebral infarction, unspecified; E78.5 Hyperlipidemia, unspecified; E66.9 Obesity, unspecified; E04.9 Nontoxic goiter, unspecified; N18.9 Chronic kidney disease, unspecified; E86.0 Dehydration; R73.01 Impaired fasting glucose
CPT/HCPCS: 36415; 70450; 70496; 70498; 70551; 71045; 80053; 80061; 80307; 81001; 82947; 83036; 83721; 84443; 85025; 85027; 93268; 93306; 96360; 97161; 97165; 99285; G0378; Q3014; A9270-GY